=== PATIENT | female | born 2000 | race Two or more races ===

== ENCOUNTER 2022-04-06 15:13 | Emergency (ER) | payer OTHER, SELFPAY ==
--- NOTE | ~2022-04-06 | XR_ITS ---
XR chest 2V DATE: 04/06/2022 16:27 INDICATION: Left chest pressure, cough, sinus pressure TECHNIQUE: PA and lateral views COMPARISON: None FINDINGS: Normal heart size. No hilar or mediastinal enlargement. No pulmonary infiltrate or consol idation, pulmonary vascular congestion or pleural effusion or pneumothorax. Mild thoracic and lumbar scoliosis. IMPRESSION: No active cardiopulmonary disease Reviewed, dictated and finalized at location A.
--- NOTE | 2022-04-06 15:16 | ECG_ITS ---
Measurements Intervals [place] Rate: 84 P: 48 HI: 126 QRS: 52 QRSD: 93 T: 27 QT: 348 QTc: 413 Interpretive Statements SINUS RHYTHM WITH SINUS ARRHYTHMIA NONSPECIFIC T-WAVE ABNORMALITY- ANTERIOR LEADS BORDERLINE ECG NO PREVIOUS ECG AVAILABLE FOR COMPARISON Electronically Signed On 04-07-2022 6:25:05 CDT by Jarrell Kinney D.O.
[2022-04-06 15:26] VITALS: BP 115/70; PULSE 88; RESP 18; TEMP 36.4; O2SAT 100
[2022-04-06 15:37] LABS: Basophils Percent Auto 0.1 % (0.2-1.2); Eosinophils Percent Auto 0.2 % (0-4.4); Hematocrit 39.8 % (37.0-47.0); Hemoglobin 12.7 g/dL (12.0-15.0); Immature Granulocyte Absolute 0.02 K/mm3 (0.00-0.031); Immature Granulocyte Percent A 0.2 % (0-0.5); Lymphocytes Absolute Auto 2.64 K/mm3 (0.9-3.2); Lymphocytes Percent Auto 30.3 % (18.3-44.2); Mean Corpuscular HGB Conc 31.9 g/dl (32-36); Mean Corpuscular Hemoglobin 29.4 pg (26-34); Mean Corpuscular Volume 92.1 fl (80-100); Mean Platelet Volume 10.1 fl (7.4-10.4); Monocytes Absolute Auto 0.6 K/mm3 (0.1-0.6); Monocytes Percent Auto 7.1 % (2.6-8.5); Neutrophils Absolute Auto 5.4 K/mm3 (1.3-6.7); Neutrophils Percent Auto 62.1 % (45.5-73.1); Platelet Count Result 198 k/mm3 (150-375); Red Blood Count 4.32 M/mm3 (4.2-5.4); Red Cell Distribution Width 12.6 % (11.5-14.5); White Blood Count 8.7 K/mm3 (4.5-10.0)
[2022-04-06 15:48] LABS: Alanine Aminotransferase 19 U/L (6-35); Albumin Level 4.4 g/dL (3.5-5.1); Alkaline Phosphatase 43 U/L (38-126); Anion Gap 14 mmol/L (8-16); Aspartate Amino Transferase 20 U/L (14-36); Bilirubin,Total 0.7 mg/dL (0.2-1.3); Blood Urea Nitrogen 11 mg/dL (7-17); Calcium 8.8 mg/dL (8.4-10.2); Carbon Dioxide 26 mmol/L (22-30); Chloride 102 mmol/L (98-107); Estimated CRCL calculation 144 ml/min; Estimated Glomerular Filt Rate > 60; Glucose 85 mg/dL (65-110); Lipase 46 U/L (23-300); Potassium 3.4 mmol/L (3.4-5.0); Sodium 142 mmol/L (137-145)
[2022-04-06 15:49] LABS: Partial Thromboplastin Time 35.1 SECONDS (22.3-36.8); Prothrombin Time 12.7 Seconds (11.1-14.7)
[2022-04-06 16:00] LABS: Troponin I < 0.012 ng/mL (0.000-0.034)
--- NOTE | 2022-04-06 19:51 | ED.CHESTPAIN ---
HPI - Chest Pain General Chief Complaint: Chest Pain Stated Complaint: left sided cp/irregular hr Time Seen by Provider: 04/06/22 19:35 History of Present Illness HPI narrative: 21-year-old female who had been dealing with a cough for the last few weeks, then over the last few days started having more congestion, sore throat, which is now resolved today presents because she was concerned about the persistent cough and some chest pain with cough. Has been started on amoxicillin and steroids by urgent care, she is worried that the steroids seem to have worsened the symptoms. Has been taking ibuprofen with improvement in her symptoms, and occasional honey which is also helping. Review of Systems Review of Systems: CONST: Fatigue HEENT: sore throat and congestion C/V: Chest pain with cough RESP: cough GI: No nausea or vomiting : No dysuria. M/S: No joint pain. SKIN: No rash. NEURO: [No focal numbness or weakness] PSYCH: [No depression] [facility] Past Medical History Medical History (Updated 04/07/22 @ 01:19 by Yaquelin Madison MD) No significant active problems Social History Social History (Updated 04/07/22 @ 01:20 by Yaquelin Madison MD) Smoking status: Never smoker Exam Narrative: EXAMINATION OF ORGAN SYSTEMS/BODY AREAS: Constitutional: Vital signs per nursing GENERAL:[No acute distress, non-toxic appearing.] HEAD: Normal with no signs of head trauma. EYES: EOMI, conjunctiva normal ENT: Mild pharyngeal edema but no swelling, speaking normally without any signs of airway compromise LUNGS: Nonlabored breathing. Clear to auscultation bilaterally HEART: [Regular rate and rhythm] ABD: [Soft], [nontender to palpation] EXT: Normal range of motion; no lower extremity edema SKIN: [No rashes or lesions.] NEURO: [Alert and oriented x 3. No gross focal sensory or strength deficits.] PSYCH: Normal affect Course Vital Signs Vital signs: Vital Signs Temperature 97.6 F 04/06/22 15:26 Pulse Rate 88 04/06/22 15:26 Respiratory Rate 18 04/06/22 15:26 Blood Pressure 115/70 04/06/22 15:26 Pulse Oximetry 100 04/06/22 15:26 Oxygen Delivery Room Air 04/06/22 15:26 Temperature 97.6 F 04/06/22 15:26 Pulse Rate 88 04/06/22 15:26 Respiratory Rate 18 04/06/22 15:26 Blood Pressure 115/70 04/06/22 15:26 Pulse Oximetry 100 04/06/22 15:26 Oxygen Delivery Room Air 04/06/22 15:26 MDM - Chest Pain MDM Narrative Medical decision making narrative: ED COURSE AND MEDICAL DECISION MAKING: This [id number] old patient presents with symptoms most suggestive of viral upper respiratory tract infection. Lungs are clear bilaterally without any respiratory distress or accessory muscle use. Labs and imaging have been obtained and are unremarkable including a normal EKG, normal chest x-ray, she is also PERC negative I have very low concern for dissection given her a age and no risk factors. Patient reassured and discharged home in stable condition with expectant management. Return precautions were provided. Procedures: Pulse oximetry interpretation - not hypoxic. Review of medical records. Lab Data Result diagrams: 04/06/22 15:29 04/06/22 15:29 Labs: Lab Results 04/06/22 04/06/22 04/06/22 Range/Units 15:29 15:29 15:29 WBC 8.7 (4.5-10.0) K/mm3 RBC 4.32 (4.2-5.4) M/mm3 Hgb 12.7 (12.0-15.0) g/dL Hct 39.8 (37.0-47.0) % MCV 92.1 (80-100) fl MCH 29.4 (26-34) pg MCHC 31.9 L (32-36) g/dl RDW 12.6 (11.5-14.5) % Plt Count 198 (150-375) k/mm3 MPV 10.1 (7.4-10.4) fl Immature Gran % (Auto) 0.2 (0-0.5) % Neut % (Auto) 62.1 (45.5-73.1) % Lymph % (Auto) 30.3 (18.3-44.2) % Placer % (Auto) 7.1 (2.6-8.5) % Eos % (Auto) 0.2 (0-4.4) % Baso % (Auto) 0.1 L (0.2-1.2) % Lymph # (Auto) 2.64 (0.9-3.2) K/mm3 Placer # (Auto) 0.6 (0.1-0.6) K/mm3 Eos # (Auto) 0.0 (0-0.3) K/mm3 Baso # (Auto) 0.0 (0.0-0.1
--- NOTE | 2022-04-06 20:20 | PC.NURSE ---
Pt seen by EDP in Private family services room as no ED rooms presently available.
== END 2022-04-06 20:21 | disposition home or self-care (01) ==
PROVIDERS: Emergency Medicine; Emergency Provider Emergency Medicine
DX: R05.9 Cough, unspecified (principal); R07.89 Other chest pain; R94.31 Abnormal electrocardiogram [ECG] [EKG]
CPT/HCPCS: 36415; 71046; 80053; 83690; 84484; 85025; 85610; 85730; 93005; 99284